=== PATIENT | female | born 2000 | race Caucasian/White ===

== ENCOUNTER 2024-05-17 23:39 | Emergency (ER) | payer MEDICAID, SELFPAY ==
[2024-05-17 23:41] VITALS: BMI 23.8
[2024-05-18 00:02] VITALS: BP 127/74; PULSE 127; RESP 22; TEMP 36.8; O2SAT 98
--- NOTE | 2024-05-18 00:11 | PD.EDRME ---
Rapid Medical Screening Exam RME Arrival date/time: 05/17/24 23:39 23 year old female present to ED for c/o of abd pain for 2 weeks. dx with UTI recently I have greeted and performed a focused initial assessment of this patient. A comprehensive ED assessment and evaluation of the patient, analysis of all test results, and completion of the medical decision making process will be conducted by additional ED providers. Chief Complaint: Abdominal Pain Vital signs: Vital Signs Temperature 98.2 F 05/18/24 00:02 Pulse Rate 127 H 05/18/24 00:02 Respiratory Rate 22 H 05/18/24 00:02 Blood Pressure 127/74 05/18/24 00:02 Pulse Oximetry (%) 98 05/18/24 00:02 Oxygen Delivery Method Room Air 05/18/24 00:02
[2024-05-18 00:32] LABS: Lactate (Lactic Acid) 2.4 mMol/L (0.4-2.0)
[2024-05-18 00:43] LABS: Basophils # (Auto) 0.1 Thou/mm3 (0.0-0.2); Basophils % (Auto) 1 % (0-2.5); Eosinophils # (Auto) 0.1 Thou/mm3 (0.0-0.5); Eosinophils % (Auto) 1 % (0-10); Hematocrit 42.3 % (36.0-46.0); Hemoglobin 14.9 g/dL (12.0-16.0); Immature Granulocytes % (Auto) 0 % (0-0); Immature Granulocytes Auto 0.02 Thou/mm3 (0.00-0.00); Lymphocytes # (Auto) 1.4 Thou/mm3 (1.0-4.8); Lymphocytes % (Auto) 21 % (10-50); Mean Corpuscular HGB Conc 35.2 g/dl (31.0-37.0); Mean Corpuscular Hemoglobin 30.9 pg (25.0-35.0); Mean Corpuscular Volume 88 fL (80-100); Monocytes # (Auto) 0.4 Thou/mm3 (0.0-0.8); Monocytes % (Auto) 6 % (0-12); Neutrophils # (Auto) 4.8 Thou/mm3 (1.8-7.7); Neutrophils % (Auto) 71 % (37-80); Nucleated Red Blood Cell % 0 /100 WBC (0); Platelet Count 448 Thou/mm3 (140-440); RDW Standard Deviation 40.1 fL (36.4-46.3); Red Blood Count 4.82 Miln/mm3 (4.00-5.20); White Blood Count 6.7 Thou/mm3 (3.6-11.0)
[2024-05-18 00:53] LABS: Alanine Aminotransferase 15 U/L (10-49); Albumin, Serum 5.4 gm/dL (3.5-5.0); Albumin/Globulin Ratio 1.7 (1.2-2.2); Alkaline Phosphatase 71 U/L (46-116); Anion Gap 11 (7-16); Aspartate Amino Transferase 25 U/L (0-34); BUN/Creatinine Ratio 10 Ratio (12-20); Bilirubin,Total 0.2 mg/dL (0.3-1.2); Blood Urea Nitrogen 7 mg/dL (9-23); Carbon Dioxide 22.2 mMol/L (20.0-31.0); Chloride 113 mMol/L (98-107); Creatinine (Component) 0.7 mg/dL (0.6-1.3); Estimated Creatinine Clearance 98.9 mL/min (>60); Globulin 3.1 gm/dL (2.3-3.5); Glucose 101 mg/dL (74-106); Lipase 52 U/L (12-53); Osmolality,Calculated 288 (275-295); Potassium 4.1 mMol/L (3.4-5.1); Sodium 146 mMol/L (136-145); Total Protein 8.5 gm/dL (5.7-8.2); eGFR > 60 See Note
[2024-05-18 01:35] LABS: HCG,Qualitative Serum Negative
[2024-05-18] MEDS: SODIUM CHLORIDE 0.9% 1000 ML 1,000 ML 999 ML IV (01:38)
[2024-05-18 02:22] VITALS: BP 115/71; PULSE 105; RESP 16; TEMP 37.1; O2SAT 97
[2024-05-18 03:29] LABS: Reflex Lactate? Y
[2024-05-18 03:50] LABS: Collection Type, Urine Voided
[2024-05-18 03:51] LABS: Lactic Acid, 3 HR 1.8 mMol/L (0.4-2.0)
[2024-05-18 04:00] LABS: Bilirubin,Urine Negative (Negative); Blood,Urine Negative (Negative); Clarity,Urine Clear (Clear/Hazy); Color,Urine Drk-Yellow (Lt Yel-Yel); Glucose, Urine Negative (Negative); Ketones,Urine Negative (Negative); Leukocyte Esterase,Urine Negative (Negative); Nitrite,Urine Negative (Negative); Protein,Urine Negative (Neg - Trace); RBC,Urine 1 /hpf (0-3); Specific Gravity,Urine 1.014 (1.001-1.035); Squamous Epithelial Cell,Urine < 1 /hpf (0-5); Urobilinogen,Urine Negative mg/dL (0.0-1.0); WBC,Urine < 1 /hpf (0-5)
--- NOTE | 2024-05-18 04:02 | PD.EDABDPN ---
ED Abdominal Pain RME/HPI General Chief Complaint: Abdominal Pain Stated complaint: SHANTE FLANK PAIN;ON ABX FOR UTI Arrival date/time: 05/17/24 23:39 Source: patient Mode of arrival: ambulatory Limitations: no limitations RME / HPI RME / HPI narrative: 05/17/24 23:39 23 year old female present to ED for c/o of abd pain for 2 weeks. dx with UTI recently I have greeted and performed a focused initial assessment of this patient. A comprehensive ED assessment and evaluation of the patient, analysis of all test results, and completion of the medical decision making process will be conducted by additional ED providers. Dr. Nixon?s Main ED Evaluation: 23-year-old otherwise healthy female, who has a history of chronic ?sensitive stomach? which has been worsening since she started on antibiotics for a UTI primary care physician four days ago. She endorsed polyuria, nocturia and dysuria at that time and she said her urine test were positive for an infection. Since she knows a few stomach upset, no nausea, no vomiting, no diarrhea. She said this year has now resolved, her frequency remains, however, has improved. She has gone from waking up nearly every hour at night to urinate too last night she got up four times. She does feel her urinary tract infection is better. Related Data Previous Rx's ?Medication ?Instructions ?Recorded potassium chloride 10 mEq 10 meq PO QDAY #30 caps 11/23/21 capsule,extended release Allergies Allergy/AdvReac Type Severity Reaction Status Date / Time No Known Allergies Allergy Verified 05/17/24 23:43 Review of Systems Review of Systems Systems Reviewed: All systems reviewed, normal except as documented Past Medical History Past Medical History NEUROLOGIC: Negative Neurological Disorders CARDIAC: Negative Cardiac Disorders or Congestive Heart Failure RESPIRATORY: Negative Chronic Obstructive Pulmonary Disease (COPD) GASTROINTESTINAL: Negative Gastrointestinal Disorders GENITOURINARY: Negative Genitourinary Disorders or Renal Disease REPRODUCTIVE: Negative Pelvic Inflammatory Disease MUSCULOSKELETAL: Negative Musculoskeletal Disorders ENDOCRINE: Negative Endocrine Disorders, Diabetes Mellitus Type 1 or Diabetes Mellitus Type 2 HEMATOLOGIC: Negative Blood Disorders Family History FAMILY HISTORY: Negative Family Cardiac Disorders Social History SMOKING STATUS: Never smoker ED Exam Narrative Physical exam: GENERAL APPEARANCE: AxOx4, generally well-appearing, no acute distress. HEENT: NC, AT. MMM. EOMI, clear conjunctiva, oropharynx clear. NECK: Supple without lymphadenopathy. No stiffness or restricted ROM. HEART: Normal rate and regular rhythm, normal S1/S1, no m/r/g LUNGS: CTAB, moving air well. No crackles or wheezes are heard. ABDOMEN: Soft, nontender, nondistended with good bowel sounds heard. BACK: No midline C/T/L spine pain or deformity, No CVAT, no obvious deformity. EXTREMITIES: Without cyanosis, clubbing or edema. MUSCULOSKELETAL: FROM of all major joints, no chest tenderness NEUROLOGICAL: Grossly nonfocal. Alert and oriented, moving all 4 extremities. CN not formally tested but appear grossly intact. Observed to ambulate with normal gait. Skin: Warm and dry without any rash. General Limitations: Present no limitations Course Quality Measures none Orders Category Date Time Status Insert IV STAT Care 05/18/24 00:10 Completed Blood Culture (Lab) Stat Lab 05/18/24 00:21 Results CBC Stat Lab 05/18/24 00:25 Completed CMP [Comprehensive Metabolic Panel] Stat Lab 05/18/24 00:25 Completed HCG,Qualitative Serum Stat Lab 05/18/24 00:25 Completed Lactic Acid [Lactate (Lactic Acid)] Stat Lab 05/18/24 00:25 Completed Lactic Acid, 3 HR Stat Lab 05/18/24 03:40 Completed Lipase Stat Lab 05/18/24 00:25 Completed UA [Urinalysis] Stat Lab 05/18/24 03:25 Completed Sodium Chloride 0.9% 1000 ml [Ns] 1,000 ml Med 05/18/24 00:11 Discontinued IV 999 mls/hr Vital Signs Vital signs: Vital Signs Temperature 98.2 F 05/18/24 00:02 Pulse Rate 127 H 05/18/24 00:02 Respiratory Rate 22 H 05/18/24 00:02 Blood Pressure 127/74 05/18/24 00:02 Pulse Oximetry (%) 98 05/18/24 00:02 Oxygen Delivery Method Room Air 05/18/24 00:02 Abdominal Pain MDM MDM Narrative MDM Narrative:: She has a benign exam. On laboratory interpretation appears that her urinal has cleared. There?s no signs and affection. Will have her stop at the antibiotics at this point. Scribe Attestation: Jaziel Pearson, am scribing for and in the presence of Dr. Nixon. Provider Notation: Although this document has been carefully reviewed, there may still be some phonetic and other typographical errors. These errors are purely grammatical due to imperfections in the software program and should not be construed in any way to compromise the substance of the patient's medical care during this visit. Patient data External records reviewed:: [facility] Clinical information provided by:: patient Social determinants that could affect healthcare access:: none Patient has the following chronic illnesses:: None How is presenting disease/condition affected by chronic disease/condition?: no chronic disease Evaluation data The following diagnostics were reviewed and interpreted by me:: lab results Lab and/or radiology exams considered but not ordered:: None Interpretation Summary: See narrative Medications / Prescriptions Medications or Prescriptions considered but not ordered:: None Medication administrations:: Medication Administration History Discontinued Medications Sodium Chloride (Ns) 1,000 mls @ 999 mls/hr IV .Q1H1M ONE Stop: 05/18/24 01:11 Last Infusion: 05/18/24 02:55 Dose: Infused Documented By: Admin: 05/18/24 01:38 Dose: 999 mls/hr Documented By: WILNER As above Consultations Consultation(s) initiated? (list below): No Diagnosis Differential diagnosis abdominal pain: constipation, gastroenteritis, pancreatitis and other (Gastritis) Most likely diagnosis given after review of the tests above:: Medication side effect Admission Indicated Admission indicated?: not indicated Admission Request Was there a request for admission?: No Disposition Plan Disposition Plan: Discharge Discharge Attestation Discharge Attestation: The patient and all family members were given an opportunity to ask questions and understood the discharge instructions. Discharge instructions specifically effects, indications for sooner follow up or return to the emergency department, and the expected course of current diagnosis. Patient condition: Stable Discharge Plan Plan Patient Disposition: HOME (Self Care) Prescriptions/Referrals Prescriptions/Med Rec: No Action potassium chloride 10 mEq capsule, extended release 10 meq PO QDAY Qty: 30 0RF Referrals: Pool Gilmore MD [Primary Care Provider] - In 1 week Problem List Clinical Impression: Medication side effect Patient/Caregiver Discharge Instructions Education Materials: Abdominal Pain Additional Instructions: It is okay to stop your antibiotics. You can start taking probiotic such as yogurt and/or Kombucha tea. Follow-up with your primary care doctor in 2 to 3 days symptoms are not improving. You can return to the emergency department sooner symptoms worsen or if he notes any new, concerning issues. Print Language: Sen[place] Stand Alone Forms: Ruth Award Info., Patient Portal Info Letter
[2024-05-18 04:56] VITALS: BP 108/72; PULSE 102; RESP 16; O2SAT 97
== END 2024-05-18 04:58 | disposition home or self-care (01) ==
PROVIDERS: Physician Assistant; Emergency Provider Emergency Medicine; PCP Family Medicine
DX: R10.84 Generalized abdominal pain (principal); T36.95XA Adverse effect of unspecified systemic antibiotic, initial encounter
CPT/HCPCS: 36415; 80053; 81001; 83605; 83690; 84703; 85025; 87040; 96360; 99284; J7030